=== PATIENT | female | born 1985 | race Caucasian/White ===

== ENCOUNTER 2022-02-11 15:34 | Emergency (ER) | payer OTHER ==
[~2022-02-11] VITALS: Ht 154.9 cm; Wt 70.8 kg
[2022-02-11] MEDS ORDERED: GLUMETZA1000 MG PO (15:47)
[2022-02-11] MEDS ORDERED: GLIPIZIDE ER10 MG PO (15:47)
== END 2022-02-11 21:28 | disposition home or self-care (01) ==
LOC: ER 15:34
DX: G43.909 Migraine, unspecified, not intractable, without status migrainosus (principal); E11.9 Type 2 diabetes mellitus without complications; Z79.84 Long term (current) use of oral hypoglycemic drugs; R50.9 Fever, unspecified; Z88.2 Allergy status to sulfonamides